=== PATIENT | female | born 1940 | race Caucasian/White ===

== ENCOUNTER 2023-02-23 22:22 | Emergency (ER) | payer OTHER, BC ==
[2023-02-23 22:32] VITALS: BP 170/88; PULSE 70; RESP 17; TEMP 98.3; BMI 26.3
== END 2023-02-23 23:03 | disposition home or self-care (01) ==
LOC: FER 22:22
DX: S93.402A Sprain of unspecified ligament of left ankle, initial encounter (principal); M25.532 Pain in left wrist; X50.1XXA Overexertion from prolonged static or awkward postures, initial encounter
CPT/HCPCS: 73110-TC-RT-FY; 73610-TC-LT-FY; 99284-25